=== PATIENT | female | born 1975 | race Caucasian/White ===

== ENCOUNTER 2017-05-29 12:23 | Emergency (ER) | payer MEDICAID ==
[~2017-05-29] VITALS: Ht 162.6 cm; Wt 109.5 kg
[~2017-05-29 12:23] MED LIST: ALBU0.08 NEB; ALBUAER3 INH; FLUT50SP EACH NARE; KETO10 PO; PANT40TA3 PO; TRAM50TA PO; ZYRT10CA PO; [UNRECOGNIZED DRUG - CODE] PO
[2017-05-29 12:24] VITALS: BP 178/96; PULSE 85; RESP 20; TEMP 98.3; O2SAT 100
[2017-05-29 13:15] LABS: AUTOMATED NEUTROPHIL # 5.7 TH/MM3 (1.8-7.7); BASOPHIL % 0.4 % (0.0-2.0); EOSINOPHIL # 0.2 TH/MM3 (0-0.4); HEMO FLAGS DIFF FINAL; LYMPH % 22.2 % (9.0-44.0); LYMPHOCYTE # 1.8 TH/MM3 (1.0-4.8); MEAN CELL VOLUME 76.5 FL (80.0-100.0); MEAN CORPUSCULAR HEMOGLOBIN 25.2 PG (27.0-34.0); MEAN CORPUSCULAR HGB CONC 32.9 % (32.0-36.0); MONO % 5.5 % (0.0-8.0); NEUT % 68.9 % (16.0-70.0); PLATELET COUNT 309 TH/MM3 (150-450); RED BLOOD COUNT 4.83 MIL/MM3 (4.00-5.30); RED CELL DISTRIBUTION WIDTH 15.4 % (11.6-17.2); WHITE BLOOD COUNT 8.2 TH/MM3 (4.0-11.0)
[2017-05-29 13:35] LABS: BLOOD, URINE NEG (NEG); COMMENT (UR) CULT NOT INDICATED; CULTURE IF INDICATED CULT NOT INDICATED; GLUCOSE,URINE NEG (NEG); KETONE, URINE NEG (NEG); NITRITE,URINE NEG (NEG); PH, URINE 6.5 (5.0-8.5); SQUAMOUS EPITHELIAL CELL URINE 2 /hpf (0-5); URINE COLOR LIGHT-YELLOW (YELLW/STRAW)
[2017-05-29 13:43] LABS: ALT (GPT) 28 U/L (10-53); ANION GAP 6 MEQ/L (5-15); AST (GOT) 15 U/L (15-37); BICARBONATE 26.8 MEQ/L (21.0-32.0); BLOOD UREA NITROGEN 6 MG/DL (7-18); CHLORIDE 106 MEQ/L (98-107); GLOMERULAR FILTRATION RATE 81 ML/MIN (>89); POTASSIUM 3.9 MEQ/L (3.5-5.1); SODIUM (NA) 139 MEQ/L (136-145)
[2017-05-29 13:50] LABS: ALKALINE PHOSPHATASE 64 U/L (45-117); TOTAL BILIRUBIN ADULT 0.5 MG/DL (0.2-1.0)
[2017-05-29] MEDS ORDERED: CETI10 PO (14:11)
--- NOTE | 2017-05-29 14:19 | PD ---
HPI Chief Complaint: Complaint Time Seen by Provider: 14:19 Travel History International Travel<30 days: No Contact w/Intl Traveler<30days: No Traveled to known affect area: No History of Present Illness HPI 42 year-old female presents to the emergency department for evaluation of possible renal calculi. Patient was sent to a urologist today for recurrent UTI from her primary care provider. She states she's been treated for UTIs in the past month. She went for a scan and was having significant left flank pain at which time they advised her to come to [facility] department. Patient denies any nausea or vomiting. No fever or chills. She has no other symptoms reported instant. PFSH Past Medical History Asthma: Yes Depression: Yes Diminished Hearing: No Gastrointestinal Disorders: Yes GERD: Yes Respiratory: Yes (asthma) Tetanus Vaccination: > 5 Years Influenza Vaccination: No ?: Not Tubal Ligation: Yes Past Surgical History Gynecologic Surgery: Yes (tubal ligation) Social History Alcohol Use: No Tobacco Use: No (pt denies ) Substance Use: No (pt denies) Allergies-Medications (Allergen,Severity, Reaction): Coded Allergies: clarithromycin (Unverified Allergy, Severe, rash, 05/29/17) diatrizoate meglumine (Unverified Allergy, Severe, rash, 05/29/17) gadobenic acid (Unverified Allergy, Severe, rash, 05/29/17) gadodiamide (Unverified Allergy, Severe, rash, 05/29/17) gadoteridol (Unverified Allergy, Severe, rash, 05/29/17) iodixanol (Unverified Allergy, Severe, rash, 05/29/17) iohexol (Unverified Allergy, Severe, rash, 05/29/17) Reported Meds & Prescriptions Reported Meds & Active Scripts Active Ibuprofen 800 Mg Tab 800 Mg PO Q8H PRN Pantoprazole (Pantoprazole Sodium) 40 Mg Tab 40 Mg PO DAILY Proair Hfa 8.5 GM Inh (Albuterol Sulfate) 90 Mcg/Act Aer 2 Puff INH Q4-6H PRN 108 mcg/actuation Albuterol Neb (Albuterol Sulfate) 2.5 Mg/3 Ml Neb 2.5 Mg NEB Q4HR NEB PRN Reported Cetirizine (Cetirizine HCl) 10 Mg Tab 10 Mg PO HS Review of Systems Except as stated in HPI: all other systems reviewed are Neg Physical Exam Narrative GENERAL: Well-nourished female patient, in no acute distress SKIN: Focused skin assessment warm/dry. HEAD: Atraumatic. Normocephalic. EYES: Pupils equal and round. No scleral icterus. No injection or drainage. ENT: No nasal bleeding or discharge. Mucous membranes pink and moist. NECK: Trachea midline. No JVD. CARDIOVASCULAR: Regular rate and rhythm. No murmur appreciated. RESPIRATORY: No accessory muscle use. Clear to auscultation. Breath sounds equal bilaterally. GASTROINTESTINAL: Abdomen soft, non-tender, nondistended. Hepatic and splenic margins not palpable. MUSCULOSKELETAL: No obvious deformities. No clubbing. No cyanosis. No edema. NEUROLOGICAL: Awake and alert. No obvious cranial nerve deficits. Motor grossly within normal limits. Normal speech. PSYCHIATRIC: Appropriate mood and affect; insight and judgment normal. Data Data Last Documented VS Vital Signs Date Time Temp Pulse Resp B/P Pulse Ox O2 Delivery O2 Flow Rate FiO2 05/29/17 15:31 97.8 78 16 130/77 99 05/29/17 12:24 Room Air Orders Urinalysis - C+S If Indicated (05/29/17 12:29) Complete Blood Count With Diff (05/29/17 12:29) Comprehensive Metabolic Panel (05/29/17 12:29) Ct Abd/Pel W/O Iv Contrast (05/29/17 ) Ketorolac Inj (Toradol Inj) (05/29/17 14:30) Labs Laboratory Tests Test 05/29/17 12:55 White Blood Count 8.2 TH/MM3 Red Blood Count 4.83 MIL/MM3 Hemoglobin 12.2 GM/DL Hematocrit 37.0 % Mean Corpuscular Volume 76.5 FL Mean Corpuscular Hemoglobin 25.2 PG Mean Corpuscular Hemoglobin 32.9 % Concent Red Cell Distribution Width 15.4 % Platelet Count 309 TH/MM3 Mean Platelet Volume 7.9 FL Neutrophils (%) (Auto) 68.9 % Lymphocytes (%) (Auto) 22.2 % Monocytes (%) (Auto) 5.5 % Eosinophils (%) (Auto) 3.0 % Basophils (%) (Auto) 0.4 % Neutrophils # (Auto) 5.7 TH/MM3 Lymphocytes # (Auto) 1.8 TH/MM3 Monocytes # (Auto) 0.4 TH/MM3 Eosinophils # (Auto) 0.2 TH/MM3 Basophils # (Auto) 0.0 TH/MM3 CBC Comment DIFF FINAL Differential Comment Urine Color LIGHT-YELLOW Urine Turbidity CLEAR Urine pH 6.5 Urine Specific [place] 1.007 Urine Protein NEG mg/dL Urine Glucose (UA) NEG mg/dL Urine Ketones NEG mg/dL Urine Occult Blood NEG Urine Nitrite NEG Urine Bilirubin NEG Urine Urobilinogen LESS THAN 2.0 MG/DL Urine Leukocyte Esterase NEG Urine RBC LESS THAN 1 /hpf Urine WBC 2 /hpf Urine Squamous Epithelial 2 /hpf Cells Microscopic Urinalysis Comment CULT NOT INDICATED Sodium Level 139 MEQ/L Potassium Level 3.9 MEQ/L Chloride Level 106 MEQ/L Carbon Dioxide Level 26.8 MEQ/L Anion Gap 6 MEQ/L Blood Urea Nitrogen 6 MG/DL Creatinine 0.77 MG/DL Estimat Glomerular Filtration 81 ML/MIN Rate Random Glucose 79 MG/DL Calcium Level 8.8 MG/DL Total Bilirubin 0.5 MG/DL Aspartate Amino Transf 15 U/L (AST/SGOT) Alanine Aminotransferase 28 U/L (ALT/SGPT) Alkaline Phosphatase 64 U/L Total Protein 8.6 GM/DL Albumin 3.7 GM/DL [facility] Medical Decision Making Medical Screen Exam Complete: Yes Emergency Medical Condition: Yes Medical Record Reviewed: Yes Differential Diagnosis Renal colic versus renal calculi versus UTI versus muscle strain versus spasm Narrative Course 42 year-old female presents to the emergency department for evaluation of left flank pain. Patient appears without distress. Vital signs are stable. Lab work is without acute concern. Urinalysis is unremarkable. Last Impressions Abdomen/Pelvis CT 05/29/17 0000 Signed Impressions: Service Date/Time: Monday, May 29, 2017 14:53 - CONCLUSION: 1. There is a minute nonobstructing less than 1 mm left renal calculus. 2. Mild hepatic steatosis. Josh Vargas MD Findings are discussed with the patient. She is encouraged follow-up with primary care provider, follow-up with her urologist, and return immediately for any acute worsening of symptoms. Diagnosis Primary Impression: Left flank pain Additional Impression: Renal calculus, left Referrals: Primary Care Physician Urologist Patient Instructions: General Instructions, Renal Colic (ED) Additional Instructions: Follow up with your primary care provider Maintain adequate oral hydration Return to ED with acute worsening of symptoms Med/Other Pt SpecificInfo: Prescription(s) given Scripts Ibuprofen 800 Mg Ygh375 Mg PO Q8H PRN (Pain/Inflammation) #30 TAB Ref 0 Prov:Brittanie Boggs 05/29/17 Disposition: 01 DISCHARGE HOME Condition: Stable Brittanie Boggs May 29, 2017 14:19
[2017-05-29] MEDS ORDERED: KETOROLAC TROMETHAMINE 60 MG/2 ML (IM) VIAL IM ONE (14:30)
--- NOTE | 2017-05-29 15:18 | RADRPT ---
EXAM DATE/TIME: 05/29/2017 14:53 [facility] COMPARISON: No previous studies available for comparison. INDICATIONS : Left flank pain for 3 weeks. ORAL CONTRAST: No oral contrast ingested. RADIATION DOSE: 27.87 CTDIvol (mGy) ; Patient body habitus MEDICAL HISTORY : None SURGICAL HISTORY : Tubal ligation. ENCOUNTER: Initial ACUITY: 3 weeks PAIN SCALE: 4/10 LOCATION: Left flank TECHNIQUE: Volumetric scanning of the abdomen and pelvis was performed. Using automated exposure control and ad justment of the mA and/or kV according to patient size, radiation dose was kept as low as reasonably achievable to obtain optimal diagnostic quality images. DICOM format image data is available electro nically for review and comparison. FINDINGS: LOWER LUNGS: The visualized lower lungs are clear. LIVER: Homogeneous density without lesion. There is no dilation of the biliary tree. No calcified gallston es. There is hepatic steatosis. SPLEEN: Normal size without lesion. PANCREAS: Within normal limits. KIDNEYS: Normal in size and shape. There is no S. core questioned at hydronephrosis. ADRENAL GLANDS: Within normal limits. VASCULAR: There is no aortic aneurysm. BOWEL/MESENTERY: The stomach, small bowel, and colon demonstrate no acute abnormality. There is no free intraperitone al air or fluid. ABDOMINAL WALL: Within normal limits. RETROPERITONEUM: There is no lymphadenopathy. BLADDER: No wall thickening or mass. REPRODUCTIVE: Within normal limits. INGUINAL: There is no lymphadenopathy or hernia. MUSCULOSKELETAL: Within normal limits for patient age. CONCLUSION: 1. There is a minute nonobstructing less than 1 mm left renal calculus. 2. Mild hepatic steatosis. Josh Vargas MD on May 29, 2017 at 15:09 Board Certified Radiologist. This report was verified electronically.
[2017-05-29] MEDS ORDERED: IBUP800T23 PO (15:21)
[2017-05-29 15:31] VITALS: BP 130/77; TEMP 97.8
== END 2017-05-29 15:30 | disposition home or self-care (01) ==
LOC: NEPD 12:23
DX: N20.0 Calculus of kidney (principal)
CPT/HCPCS: 74176; 80053; 81001; 85025; 96372; 99285; J1885

== ENCOUNTER → 2017-10-18 | Outpatient (CLI) | payer MEDICAID ==
[~2017-10-18] MED LIST changes: +CETI10 PO; -FLUT50SP EACH NARE; +GLUCKIT15; +GLUCTES12; +IBUP1TAB7 PO; -KETO10 PO; +LANCETS1 MI1; -TRAM50TA PO; -ZYRT10CA PO; -[UNRECOGNIZED DRUG - CODE] PO
== END ==
LOC: HCAV 10:07
PROVIDERS: ATTEND Family Medicine
DX: I49.9 Cardiac arrhythmia, unspecified (principal)
CPT/HCPCS: 93270